=== PATIENT | female | born 1955 ===

== ENCOUNTER 2020-12-25 07:28 | Day surgery (SDC) | payer OTHER ==
[2020-12-25] MEDS ORDERED: LEVOFLOXACIN500 MG PO (10:19)
[2020-12-25] MEDS ORDERED: METRONIDAZOLE500 MG PO (10:19)
== END 2020-12-25 11:45 | disposition home or self-care (01) ==
LOC: AMB-ENDOS 07:28
PROVIDERS: ATTEND Surgery
DX: K62.1 Rectal polyp (principal)